=== PATIENT | female | born 2000 ===

== ENCOUNTER 2025-10-08 14:37 | Emergency (ER) | payer OTHER ==
[~2025-10-08] VITALS: Ht 152.4 cm; Wt 58.2 kg
[2025-10-08 15:00] VITALS: BP 115/69; PULSE 100; RESP 16; TEMP 98.405312; O2SAT 100
[2025-10-08] MEDS ORDERED: LIDOCAINE 1% 10 ML VIAL SQ ONE (15:15)
[2025-10-08] MEDS: PERTUSS(ACELL),DIPH,TET/PF 0.5 ML SYRINGE [ADULT] IM. ONE (15:32)
[2025-10-08] MEDS: ACETAMINOPHEN 500 MG TABLET PO ONE (15:32)
[2025-10-08] MEDS: IBUPROFEN 600 MG TABLET PO ONE (15:32)
[2025-10-08] MEDS: BACITRACIN 0.9 GM PACKET OINTMENT TP ONE (16:15)
== END 2025-10-08 16:37 ==
LOC: EMS 14:37
DX: S60.551A Superficial foreign body of right hand, initial encounter (principal); W45.8XXA Other foreign body or object entering through skin, initial encounter; Y93.89 Activity, other specified; Y92.89 Other specified places as the place of occurrence of the external cause; Y99.8 Other external cause status
CPT/HCPCS: 99285; 10120; 90715; 90471; J3490; 99284